=== PATIENT | male | born 1990 | race Caucasian/White ===

== ENCOUNTER 2021-05-23 10:04 | Emergency (ER) | payer SELFPAY ==
[2021-05-23] MEDS ORDERED: Sodium Chloride 0.9% 10 ML Syringe FLUSH PRN (11:11)
[2021-05-23] MEDS ORDERED: Sodium Chloride 0.9% 1,000 ML IV ONE (11:15)
[2021-05-23 12:02] LABS: ANION GAP 13.5 mEq/L (7-13); CHLORIDE,CL 103 mmol/L (98-107); SODIUM,NA 142 mmol/L (136-145)
[2021-05-23 12:58] LABS: CORONAVIRUS COVID-19 NAA NEGATIVE (NEGATIVE)
== END 2021-05-23 13:45 | disposition home or self-care (01) ==
LOC: DL.ED 10:04
DX: R42 Dizziness and giddiness (principal); R11.0 Nausea; R53.1 Weakness; Z72.0 Tobacco use; Z20.822 Contact with and (suspected) exposure to COVID-19
CPT/HCPCS: 0240U; 36415; 71045; 80053; 82947; 83605; 83735; 84443; 84484; 85025; 85379; 86140; 93005; 99284; J7030

== ENCOUNTER 2021-08-10 02:48 | Emergency (ER) | payer OTHER ==
[2021-08-10] MEDS ORDERED: Sodium Chloride 0.9% 10 ML Syringe FLUSH PRN (02:55)
[2021-08-10] MEDS ORDERED: LORazepam 2 MG/ML SDV ONE (03:15)
[2021-08-10] MEDS ORDERED: levETIRAcetam in NaCl (iso-os) 1,500 MG in Premix Bag 1 BAG IV ONE ×2 (03:28)
[2021-08-10 03:34] LABS: ANION GAP 18.5 mEq/L (7-13); CHLORIDE,CL 97 mmol/L (98-107); SODIUM,NA 136 mmol/L (136-145)
[2021-08-10] MEDS ORDERED: Dexamethasone 4 MG/ML SDV IVPUSH ONE (03:54)
[2021-08-10] MEDS ORDERED: LORazepam 2 MG/ML SDV IVPUSH ONE (04:20)
== END 2021-08-10 04:30 ==
LOC: DL.ED 02:48
DX: R56.9 Unspecified convulsions (principal); C71.9 Malignant neoplasm of brain, unspecified; Z87.891 Personal history of nicotine dependence; Z88.2 Allergy status to sulfonamides
CPT/HCPCS: 36415; 70450; 80053; 80307; 83605; 83615; 83735; 84100; 84443; 85025; 86140; 93005; 93010; 96374; 96375; 99285; 99285-25; J1100; J1953

== ENCOUNTER 2021-09-09 12:15 | Emergency (ER) | payer OTHER ==
[2021-09-09] MEDS ORDERED: Acetaminophen/HYDROcodone 325-10 MG Tab PO ONE (12:16)
[2021-09-09] MEDS ORDERED: Ondansetron 4 MG/2 ML SDV IV ONE (13:08)
[2021-09-09] MEDS ORDERED: HYDROmorphone 0.5 MG/0.5 ML Syringe IVPUSH ONE (13:09)
[2021-09-09 13:20] LABS: ANION GAP 10.5 mEq/L (7-13); CHLORIDE,CL 101 mmol/L (98-107); SODIUM,NA 137 mmol/L (136-145)
[2021-09-09 14:38] LABS: CORONAVIRUS COVID-19 NAA NEGATIVE (NEGATIVE); RESPIRATORY SYNCYTIAL VIR NAA NEGATIVE (NEGATIVE)
[2021-09-09] MEDS ORDERED: HYDROmorphone 1 MG/ML Syringe IVPUSH ONE (14:50)
[2021-09-09] MEDS ORDERED: Acetaminophen/HYDROcodone 325-5 MG Tab ONE (19:17)
[2021-09-09] MEDS ORDERED: Acetaminophen/HYDROcodone 325-10 MG Tab ONE (19:20)
== END 2021-09-09 19:15 | disposition home or self-care (01) ==
LOC: DL.ED 12:15
DX: G89.18 Other acute postprocedural pain (principal); R51.9 Headache, unspecified; I10 Essential (primary) hypertension; Z88.2 Allergy status to sulfonamides; Z79.899 Other long term (current) drug therapy; Z20.822 Contact with and (suspected) exposure to COVID-19
CPT/HCPCS: 0241U; 36415; 70450; 80053; 85027; 87081; 87430; 96374; 96375; 96376; 99284; A9270; J1170; J2405